=== PATIENT | female | born 1995 | race Caucasian/White ===

== ENCOUNTER 2021-10-20 15:35 | Emergency (ER) | payer SELFPAY ==
[~2021-10-20 15:35] MED LIST: AMOXICILLIN500 MG PO; CLARITIN10 MG PO; DIFLUCAN150 MG PO; MOTRIN400 MG PO; PEN-VEE K500 MG PO; PROVENTIL0.09 MG/AC IH; ZITHROMAX Z PA250 MG PO
[2021-10-20 16:03] LABS: BASO # 0.1 10*3/uL (0.0-0.1); BASO % 0.5 % (0.0-1.0); EOS % 0.2 % (1.0-4.0); HEMATOCRIT 45.6 % (37.0-47.0); LYMPH # 1.5 10*3/uL (1.3-4.4); LYMPH % 11.8 % (27.0-41.0); MEAN CELL VOLUME 82.8 fl (81.0-99.0); MEAN CORPUSCULAR HGB 29.2 pg (27.0-31.0); MEAN CORPUSCULAR HGB CONC 35.3 g/dl (33.0-37.0); MEAN PLATELET VOLUME 9.2 fl (9.6-12.3); MONO # 0.3 10*3/uL (0.1-1.0); MONO % 2.2 % (3.0-9.0); NEUT # 10.5 10*3/uL (2.3-7.9); NEUT % 85.1 % (47.0-73.0); PLATELET COUNT AUTOMATED 442 10*3/uL (130-400); RED BLOOD COUNT 5.51 10*6/uL (4.10-5.10); RED CELL DISTRI WIDTH 11.9 % (0-14.5); WHITE BLOOD COUNT 12.4 10*3/uL (4.8-10.8)
[2021-10-20 16:22] LABS: ALBUMIN 4.6 gm/dl (3.1-4.5); ALKALINE PHOSPHATASE 71 U/L (45-117); BUN 9 mg/dl (7-24); CHLORIDE 110 mmol/L (98-107); CREATININE 0.89 mg/dL (0.55-1.02); LIPASE 63 U/L (73-393); POTASSIUM 3.5 mmol/L (3.5-5.1); SGOT/AST 18 IU/L (3-35); SGPT/ALT 33 U/L (12-78); SODIUM 142 mmol/L (136-145); TOTAL PROTEIN 8.8 gm/dL (6.4-8.2)
== END 2021-10-20 17:35 | disposition home or self-care (01) ==
LOC: ED 15:35
PROVIDERS: Physician Assistant
DX: R11.2 Nausea with vomiting, unspecified (principal)